=== PATIENT | male | born 1965 | race Two or more races ===

== ENCOUNTER 2017-06-28 11:47 | Emergency (ER) | payer OTHER ==
[~2017-06-28] VITALS: Ht 160 cm; Wt 81.6 kg
[2017-06-28 13:28] LABS: Basophils # (auto) 0 uL; Basophils % (auto) 0.4 % (0.0-2.0); Eosinophils # (auto) 0.2 uL; Eosinophils % (auto) 2.3 % (0.0-7.0); Hematocrit 47.1 % (41.0-53.0); Hemoglobin 16.1 g/dL (13.5-17.5); Lymphocytes # (auto) 1.9 uL; Lymphocytes % (auto) 21.3 % (10.0-50.0); Mean Corpuscular Hemoglobin 28.9 pg (28.0-32.0); Mean Corpuscular Hgb Conc. 34.1 g/dL (32.0-36.0); Mean Corpuscular Volume 84.7 fL (80.0-100.0); Monocytes # (auto) 0.7 uL; Neutrophils # (auto) 6.2 uL; Nucleated Red Blood Cells % 0.1 %; Platelet Count (auto) 199 10^3/uL (140-450); Red Blood Cells 5.56 10^6/uL (4.5-5.90); Red Cell Distribution Width 13.5 % (11.8-14.3); White Blood Cell 9.1 10^3/uL (4.4-10.8)
[2017-06-28 13:58] LABS: Albumin 4.1 g/dL (3.4-5.0); BUN/Creatinine Ratio 12.6; Bilirubin, Total 0.6 mg/dL (0.2-1.0); Calcium 9.1 mg/dL (8.5-10.1); Potassium 4.1 mmol/L (3.5-5.1)
[2017-06-28] MEDS ORDERED: MECLIZINE HCL 25 MG TAB PO ONE (15:15)
[2017-06-28 16:37] VITALS: BP 120/73
== END 2017-06-28 16:23 | disposition home or self-care (01) ==
LOC: ER 11:47
DX: R42 Dizziness and giddiness (principal); R51 Headache; I10 Essential (primary) hypertension; E11.9 Type 2 diabetes mellitus without complications; E78.5 Hyperlipidemia, unspecified; F17.210 Nicotine dependence, cigarettes, uncomplicated
CPT/HCPCS: 36415; 70450; 80053; 85025; 93005; 99285; J8597

== ENCOUNTER 2018-01-06 15:59 | Emergency (ER) | payer OTHER ==
[~2018-01-06] VITALS: Ht 157.5 cm; Wt 86.2 kg
[2018-01-06 18:57] LABS: Basophils # (auto) 0.1 uL; Basophils % (auto) 0.7 % (0.0-2.0); Eosinophils # (auto) 0.4 uL; Hematocrit 49.7 % (41.0-53.0); Hemoglobin 16.9 g/dL (13.5-17.5); Lymphocytes # (auto) 2.9 uL; Lymphocytes % (auto) 29.3 % (10.0-50.0); Mean Corpuscular Hemoglobin 29.5 pg (28.0-32.0); Mean Corpuscular Hgb Conc. 34.1 g/dL (32.0-36.0); Mean Corpuscular Volume 86.6 fL (80.0-100.0); Monocytes # (auto) 0.9 uL; Monocytes % (auto) 8.8 % (0.0-12.0); Neutrophils # (auto) 5.6 uL; Neutrophils % (auto) 57.2 % (37.0-80.0); Nucleated Red Blood Cells % 0.3 %; Platelet Count (auto) 209 10^3/uL (140-450); Red Blood Cells 5.74 10^6/uL (4.5-5.90); Red Cell Distribution Width 13.3 % (11.8-14.3); White Blood Cell 9.8 10^3/uL (4.4-10.8)
[2018-01-06 19:15] LABS: Alanine Aminotransferase 51 U/L (16-61); Albumin 4.2 g/dL (3.4-5.0); Anion Gap 7 (5-15); Aspartate Aminotransferase 26 U/L (15-37); BUN/Creatinine Ratio 13.6; Blood Urea Nitrogen 15 mg/dL (7-18); Calcium 9.6 mg/dL (8.5-10.1); Carbon Dioxide 29 mmol/L (21-32); Chloride 100 mmol/L (98-107); GFR African American 90 mL/min; GFR Non-African American 74 mL/min; Glucose 96 mg/dL (74-106); Magnesium 2.1 mg/dL (1.6-2.6); Potassium 4.1 mmol/L (3.5-5.1); Sodium 136 mmol/L (136-145)
[2018-01-06 19:20] LABS: Alkaline Phosphatase 74 U/L (45-117); Bilirubin, Total 0.3 mg/dL (0.2-1.0); Total Protein 8.3 g/dL (6.4-8.2)
[2018-01-07 02:32] VITALS: BP 153/87
[2018-01-07] MEDS ORDERED: HYDROcodone-ACET 10/325MG TAB PO ONE (03:15)
[2018-01-07] MEDS ORDERED: BACLOFEN 10 MG TAB PO ONE (03:15)
[2018-01-07] MEDS ORDERED: BACLOFEN 10 MG TAB ONE (03:16)
== END 2018-01-07 04:29 | disposition home or self-care (01) ==
LOC: ER 16:07
DX: S46.812A Strain of other muscles, fascia and tendons at shoulder and upper arm level, left arm, initial encounter (principal); S16.1XXA Strain of muscle, fascia and tendon at neck level, initial encounter; M77.8 Other enthesopathies, not elsewhere classified; E11.9 Type 2 diabetes mellitus without complications; K21.9 Gastro-esophageal reflux disease without esophagitis; E78.5 Hyperlipidemia, unspecified; I10 Essential (primary) hypertension; F17.210 Nicotine dependence, cigarettes, uncomplicated; X58.XXXA Exposure to other specified factors, initial encounter; Y93.89 Activity, other specified; Y99.8 Other external cause status; Y92.89 Other specified places as the place of occurrence of the external cause
CPT/HCPCS: 36415; 72125; 73200; 80053; 83735; 84484; 84550; 85025; 85652; 93005

== ENCOUNTER 2018-11-10 09:54 | Emergency (ER) | payer OTHER ==
[~2018-11-10] VITALS: Ht 160 cm; Wt 83.9 kg
[2018-11-10 10:16] VITALS: BP 152/93
[2018-11-10] MEDS ORDERED: KETOROLAC TROMETH 60MG/2ML VIAL IM ONE (12:15)
[2018-11-10] MEDS ORDERED: diphenhdrAMINE HCL 25 MG CAP PO ONE (12:15)
[2018-11-10] MEDS ORDERED: ACETAMINOPHEN 325 MG TAB PO ONE (12:45)
== END 2018-11-10 13:54 | disposition home or self-care (01) ==
LOC: ER 09:54
DX: S60.011A Contusion of right thumb without damage to nail, initial encounter (principal); R51 Headache; M79.602 Pain in left arm; R20.0 Anesthesia of skin; F17.210 Nicotine dependence, cigarettes, uncomplicated; E11.9 Type 2 diabetes mellitus without complications; K21.9 Gastro-esophageal reflux disease without esophagitis; E78.5 Hyperlipidemia, unspecified; I10 Essential (primary) hypertension; E78.00 Pure hypercholesterolemia, unspecified; W18.39XA Other fall on same level, initial encounter; Y93.89 Activity, other specified; Y92.89 Other specified places as the place of occurrence of the external cause; Y99.8 Other external cause status
CPT/HCPCS: 70450; 73130

== ENCOUNTER 2021-10-16 15:19 | Emergency (ER) | payer MEDICAID, OTHER ==
[~2021-10-16] VITALS: Ht 160 cm; Wt 81.8 kg
[2021-10-16] MEDS ORDERED: SODIUM CHLORIDE 0.9% 1,000 ML IVB ONE (15:45)
[2021-10-16] MEDS ORDERED: ONDANSETRON HCL 4 MG/2 ML VIAL IV ONE (15:45)
[2021-10-16] MEDS ORDERED: KETOROLAC TROMETH 30 MG/ML 1ML VIAL IV ONE (15:45)
[2021-10-16 16:10] LABS: Basophils # (auto) 0.1 10 ^3/uL (0-0.2); Basophils % (auto) 0.5 % (0.0-2.0); Eosinophils # (auto) 0.2 10 ^3/uL (0-0.8); Eosinophils % (auto) 2.2 % (0.0-7.0); Hematocrit 44.6 % (41.0-53.0); Hemoglobin 14.7 g/dL (13.5-17.5); Lymphocytes # (auto) 2.5 10 ^3/uL (0.4-5.4); Lymphocytes % (auto) 23.3 % (10.0-50.0); Mean Corpuscular Hemoglobin 27.8 pg (28.0-32.0); Mean Corpuscular Hgb Conc. 32.9 g/dL (32.0-36.0); Mean Corpuscular Volume 84.4 fL (80.0-100.0); Monocytes # (auto) 0.8 10 ^3/uL (0-1.3); Monocytes % (auto) 7.6 % (0.0-12.0); Neutrophils # (auto) 7.2 10 ^3/uL (1.6-8.6); Neutrophils % (auto) 66.4 % (37.0-80.0); Nucleated Red Blood Cells % 0.2 %; Red Blood Cells 5.28 10^6/uL (4.5-5.90); Red Cell Distribution Width 13.5 % (11.8-14.3); White Blood Cell 10.8 10^3/uL (4.4-10.8)
[2021-10-16 16:16] LABS: Albumin 3.8 g/dL (3.4-5.0); BUN/Creatinine Ratio 14.6; Calcium 8.9 mg/dL (8.5-10.1)
[2021-10-16 16:19] LABS: Bilirubin, Total 0.4 mg/dL (0.2-1.0); Total Protein 7.2 g/dL (6.4-8.2)
[2021-10-16 16:52] LABS: Urine Bacteria NONE SEEN /hpf (None Seen); Urine Blood Negative /uL (Negative); Urine Hyaline Cast MANY /lpf (0 - 2); Urine Mucus FEW (None Seen); Urine Specific Gravity 1.028 (1.001-1.035); Urine WBC 2 /hpf (0 - 3)
[2021-10-16] MEDS ORDERED: TRAM-297 PO (17:38)
[2021-10-16 20:22] VITALS: BP 111/55
== END 2021-10-16 20:45 | disposition home or self-care (01) ==
LOC: ER 15:19
DX: R10.32 Left lower quadrant pain (principal); I10 Essential (primary) hypertension; E78.5 Hyperlipidemia, unspecified; K21.9 Gastro-esophageal reflux disease without esophagitis; F17.210 Nicotine dependence, cigarettes, uncomplicated
CPT/HCPCS: 36415; 74176; 80053; 81001; 83690; 85025; 96361; 96374; 96375; 99284; J1885; J2405; J7030

== ENCOUNTER 2022-02-25 07:44 | Emergency (ER) | payer MEDICAID ==
[~2022-02-25] VITALS: Ht 160 cm; Wt 84.7 kg
[~2022-02-25 07:44] MED LIST: TRAM-297 PO
[2022-02-25 12:29] VITALS: BP 138/67
[2022-02-25] MEDS ORDERED: OSEL75CA5 PO (12:50)
[2022-02-25] MEDS ORDERED: ACET-1158 PO (12:50)
[2022-02-25] MEDS ORDERED: IBUP800T26 PO (12:50)
== END 2022-02-25 12:58 | disposition home or self-care (01) ==
LOC: ER 07:44
DX: J10.1 Influenza due to other identified influenza virus with other respiratory manifestations (principal); I10 Essential (primary) hypertension; E78.5 Hyperlipidemia, unspecified; K21.9 Gastro-esophageal reflux disease without esophagitis; F17.210 Nicotine dependence, cigarettes, uncomplicated; Z20.822 Contact with and (suspected) exposure to COVID-19
CPT/HCPCS: 36415; 87426; 87804

== ENCOUNTER 2024-01-15 16:43 | Emergency (ER) | payer MEDICAID ==
[~2024-01-15] VITALS: Ht 160 cm; Wt 83.7 kg
[~2024-01-15 16:43] MED LIST changes: +ACET500T58 PO; +IBUP-1455 PO; +OSEL75CA5 PO
[2024-01-15 17:36] VITALS: BP 149/83; PULSE 76; RESP 17; O2SAT 98
[2024-01-15] MEDS: HYDROcodone-ACET 5/325MG TAB PO ONE (17:37)
[2024-01-15] MEDS ORDERED: BACL10TA PO (17:55)
[2024-01-15] MEDS ORDERED: IBUP-1456 PO (17:55)
== END 2024-01-15 18:03 | disposition home or self-care (01) ==
LOC: ER 16:50
DX: S16.1XXA Strain of muscle, fascia and tendon at neck level, initial encounter (principal); S39.012A Strain of muscle, fascia and tendon of lower back, initial encounter; I10 Essential (primary) hypertension; K21.9 Gastro-esophageal reflux disease without esophagitis; E78.5 Hyperlipidemia, unspecified; F17.210 Nicotine dependence, cigarettes, uncomplicated; Z98.890 Other specified postprocedural states; Z79.1 Long term (current) use of non-steroidal anti-inflammatories (NSAID); Z79.899 Other long term (current) drug therapy; X58.XXXA Exposure to other specified factors, initial encounter; Y93.89 Activity, other specified; Y92.89 Other specified places as the place of occurrence of the external cause; Y99.8 Other external cause status
CPT/HCPCS: 72040

== ENCOUNTER 2024-08-02 18:56 | Emergency (ER) | payer MEDICAID ==
[~2024-08-02] VITALS: Ht 165.1 cm; Wt 84.5 kg
[~2024-08-02 18:56] MED LIST changes: +BACL10TA PO; +IBUP-1456 PO
--- NOTE | 2024-08-02 20:11 | DVH ---
CLINICAL INDICATION: injury/px TECHNIQUE: 3 radiographic views of the left hand were obtained. Comparison: None FINDINGS/IMPRESSION: There is no evidence of acute fracture or dislocation. The visualized joint space is well maintained. The alignment is anatomical. There is no radiopaque foreign body.
--- NOTE | 2024-08-02 20:59 | ED.PDOC ---
Back pain HPI HPI Comments pt presents to ed w/cc of left thumb injury. pt reports working on his car today when he dropped a car part on his thumb. pt rates pain 10/10 on pain scale. pt a&ox4, vss, rr even and unlabored on ra. Chief Complaint: Upper Extremity Time Seen by MD: 19:08 Primary Care Provider: DION DONAHUE Allergies: Coded Allergies: NO KNOWN ALLERGIES (Unverified , 09/01/15) Home Meds Active Scripts Baclofen (Baclofen) 10 Mg Tab, 10 MG PO BID, #20 TAB Prov:AMINA LINO 01/15/24 Ibuprofen (Ibuprofen) 800 Mg Tab, 1 TAB PO TID, #30 TAB Prov:AMINA LINO 01/15/24 Oseltamivir Phosphate (Tamiflu) 75 Mg Cap, 1 CAP PO BID for 5 Days, #10 CAP Prov:VIPUL DALLAS 02/25/22 Ibuprofen Micronized (Ibuprofen) 800 Mg Tab, 800 MG PO TIDP PRN, #30 TAB Prov:VIPUL DALLAS 02/25/22 Acetaminophen (Acetaminophen) 500 Mg Tab, 500 MG PO Q4HPRN PRN, #30 TAB Prov:VIPUL DALLAS [facility] 02/25/22 Tramadol Hcl (Ultram) 50 Mg Tab, 1 TAB PO Q6HR, #30 TAB Prov:YASMIN PHILLIPS MD 10/16/21 Mode of Arrival: Ambulatory Past Medical History PAST MEDICAL HISTORY: GERD, High Lipids, HTN Surgical History: Hernia Repair Family History Family History: Reviewed,noncontributory to illness Social History Smoker: Cigarettes, Less Than 1 Pack/Day Alcohol: Occasionally Drugs: Denies Drug Use Lives In: Home Constitutional: denies: chills, diaphoresis, fatigue, fever, malaise, sweats, weakness, others EENTM: denies: blurred vision, double vision, ear bleeding, ear discharge, ear drainage, ear pain, ear ringing, eye pain, eye redness, hearing loss, mouth pain, mouth swelling, nasal discharge, nose bleeding, nose congestion, nose pain, photophobia, tearing, throat pain, throat swelling, voice changes, others Respiratory: denies: cough, hemoptysis, orthopnea, SOB at rest, shortness of breath, SOB with excertion, stridor, wheezing, others Cardiovascular: denies: chest pain, dizzy spells, diaphoresis, Dyspnea on exertion, edema, irregular heart beat, left arm pain, lightheadedness, palpitations, PND, syncope, others Gastrointestinal: denies: abdomen distended, abdominal pain, blood streaked bowels, constipated, diarrhea, dysphagia, difficulty swallowing, hematemesis, melena, nausea, poor appetite, poor fluid intake, rectal bleeding, rectal pain, vomiting, others Genitourinary: denies: burning, dysuria, flank pain, frequency, hematuria, i ncontinence, penile discharge, penile sore, pain, testicle pain, testicle swelling, urgency, others Neurological: denies: dizziness, fainting, headache, left sided numbness, left sided weakness, numbness, paresthesia, pre-existing deficit, right sided numbness, right sided weakness, seizure, speech problems, tingling, tremors, weakness, others Musculoskeletal: denies: back pain, gout, joint pain, joint swelling, muscle pain, muscle stiffness, neck pain, others Integumetry: reports: bruises (LEFT THUMB CONTUSION AND WOUND); denies: change in color, change in hair/nails, dryness, laceration, lesions, lumps, rash, wounds, others Allergic/Immunocompromised: denies: Difficulty Healing, Frequent Infections, Hives, Itching, others Hematologic/Lymphatic: denies: anemia, blood clots, easy bleeding, easy bruising, swollen glands, others Endocrine: denies: excessive hunger, excessive sweating, excessive thirst, excessive urination, flushing, intolerance to cold, intolerance to heat, unexplained weight gain, unexplained weight loss, others Psychiatric: denies: anxiety, bipolar disorder, depression, hopeless, panic disorder, schizophrenia, sleepless, suicidal, others Physical Exam General Appearance: No Apparent Distress, Normal HEENT: Pharynx Normal Neck: Full Range of Motion, Non-Tender Respiratory: Lungs Clear, No Respiratory Distress, Normal Breath Sounds Cardiovascular: No Murmur, Normal Peripheral Pulses, Regular Rate/Rhythm Breast Exam: Deferred Gastrointestinal: Non Tender, Soft Genitalia: Deferred Pelvic: Deferred Rectal: Deferred Extremities: Normal capillary refill, Normal inspection, Normal range of motion, Non-tender, No pedal edema Musculoskeletal : Apperance: Normal Neurologic: Alert, air defense specialist II-XII nml as Tested, No Motor Deficits, Normal Affect, Normal Mood, No Sensory Deficits Cerebellar Function: Normal Reflexes: Normal Skin: Dry, Normal Color, Warm, Wounds (LEFT DISTAL TIP THUMB NOTED ECCHYMOSIS WITH SUPERFICIAL ABRASION STRENGTH SENSORY MOTION INTACT CAP REFILL LESS THAN 3 SECONDS NO NOTED FOREIGN BODY.) Lymphatic: No Adenopathy Was a procedure done? Was a procedure done?: No Back Pain Differential Dx Differential Diagnosis: Fracture, Musculoskeletal Pain X-Ray, Labs, Meds, VS Vital Signs Date Time Temp Pulse Resp B/P (MAP) Pulse Ox O2 Delivery O2 Flow Rate FiO2 08/02/24 21:22 98.4 72 18 143/89 (107) 96 98.4 08/02/24 19:20 98.6 76 18 138/78 (98) 94 98.6 08/02/24 19:20 Room Air 08/02/24 19:20 98.6 76 18 138/78 (98) 94 98.6 Current Medications Medications (Trade) Dose Ordered Sig/Claire Route Start Time Stop Time Status Last Admin Diphtheria/ Tetanus/Acell Pertussis (Boostrix T-Dap) 0.5 ml ONCE ONCE IM 08/02/24 21:15 08/02/24 21:16 DC 08/02/24 21:45 X-Ray, Labs, Meds, VS Comment X-RAY LEFT HAND THUMB SHOWS NO ACUTE FRACTURES, DISLOCATIONS, SUBLUXATIONS, OR OSSEOUS LESIONS. PATIENT GIVEN TDAP FINGER CLEANSED DRESSED AND SPLINTED WITH FROG SPLINT TOLERATED WELL REQUESTING DISCHARGE AT THIS TIME. ADVISED ON RICE. HE IS TO FOLLOW UP WITH HIS PCP WITHIN 2-3 DAYS NECESSARY CONSIDER FURTHER IMAGING IF SYMPTOMS PERSIST. ER RETURN PRECAUTIONS GIVEN PATIENT INDICATES UNDERSTANDING AGREES WITH DISCHARGE PLAN OF CARE. Time of 1ST Reevaluation: 20:59 Reevaluation 1ST: Improved Patient Education/Counseling: Diagnosis, Treatment, Prognosis, Need For Follow Up Family Education/Counseling: No Family Present Departure 1 Departure Time of Disposition: 20:59 Impression: Primary Impression: Contusion of thumb without damage to nail Qualified Codes: S60.012A - Contusion of left thumb without damage to nail, initial encounter Disposition: HOME / SELF CARE / HOMELESS Condition: Stable Discharged With: Self Critical Care Note Critical Care Time?: No Stability Stability form required: RADHA Peters August 02, 2024 20:59
[2024-08-02 21:22] VITALS: BP 143/89; PULSE 72; RESP 18; TEMP 98.4; O2SAT 96
[2024-08-02] MEDS: TETANUS-DIPTH-ACEL PERTUSSIS 0.5ML SYR Tdap IM ONE (21:45)
== END 2024-08-02 22:21 | disposition home or self-care (01) ==
LOC: ER 18:56
DX: S60.012A Contusion of left thumb without damage to nail, initial encounter (principal); F17.210 Nicotine dependence, cigarettes, uncomplicated; I10 Essential (primary) hypertension; Z98.890 Other specified postprocedural states; Z79.899 Other long term (current) drug therapy; Z79.1 Long term (current) use of non-steroidal anti-inflammatories (NSAID); W20.8XXA Other cause of strike by thrown, projected or falling object, initial encounter; Y93.89 Activity, other specified; Y92.89 Other specified places as the place of occurrence of the external cause; Y99.8 Other external cause status
CPT/HCPCS: 29130; 73130; 90471; 90715